=== PATIENT | male | born 1985 | race Caucasian/White ===

== ENCOUNTER 2023-08-23 07:53 | Emergency (ER) | payer SELFPAY ==
[~2023-08-23] VITALS: Ht 182 cm; Wt 90.7 kg
[2023-08-23 07:59] VITALS: BP 108/75
[2023-08-23] MEDS ORDERED: LACTATED RINGERS 1,000 ML 1,000 ML IV ONE ×3 (08:30→11:30)
[2023-08-23 08:39] LABS: BASOPHILS % (AUTO) 1 % (0-10); EOSINOPHILS # (AUTO) 0.1 10^3/uL (0.0-0.3); EOSINOPHILS % (AUTO) 1 % (0-10); HEMATOCRIT 40 % (40-54); HEMOGLOBIN 13.9 g/dL (13.3-17.7); LYMPHOCYTES # (AUTO) 1.2 10^3/uL (1.0-4.0); LYMPHOCYTES % (AUTO) 17 % (12-44); MEAN CORPUSCULAR HEMOGLOBIN 30 pg (25-34); MEAN CORPUSCULAR HGB CONC 35 g/dL (32-36); MEAN CORPUSCULAR VOLUME 86 fL (80-99); MEAN PLATELET VOLUME 10.7 fL (9.0-12.2); MONOCYTES # (AUTO) 0.5 10^3/uL (0.0-1.0); MONOCYTES % (AUTO) 7 % (0-12); NEUTROPHILS # (AUTO) 5.4 10^3/uL (1.8-7.8); NEUTROPHILS % (AUTO) 75 % (42-75); PLATELET COUNT 248 10^3/uL (130-400); WHITE BLOOD COUNT 7.3 10^3/uL (4.3-11.0)
[2023-08-23 08:44] LABS: CHLORIDE 106 MMOL/L (98-107); POTASSIUM 3.1 MMOL/L (3.6-5.0)
[2023-08-23 08:45] LABS: SODIUM 139 MMOL/L (135-145)
[2023-08-23 08:46] LABS: CALCIUM 8.6 MG/DL (8.5-10.1)
[2023-08-23 08:48] LABS: GLUCOSE 128 MG/DL (70-105); TOTAL PROTEIN 6.4 GM/DL (6.4-8.2)
[2023-08-23 08:49] LABS: BILIRUBIN,TOTAL 0.6 MG/DL (0.1-1.0); CARBON DIOXIDE 24 MMOL/L (21-32)
[2023-08-23 08:51] LABS: ALKALINE PHOSPHATASE 29 U/L (40-136); CREATININE SERUM 0.91 MG/DL (0.60-1.30); GFR ESTIMATED 112
[2023-08-23 08:53] LABS: ACETAMINOPHEN < 10 UG/ML (10-30); BUN/CREATININE RATIO 22
[2023-08-23 08:54] LABS: ALANINE AMINOTRANSFERASE 51 U/L (0-55); SALICYLATE < 5.0 MG/DL (5.0-20.0)
[2023-08-23 08:55] LABS: CREATINE KINASE 984 U/L (30-200)
--- NOTE | 2023-08-23 09:31 | ED Psychosocial ---
General Chief Complaint: Psych/Social Disorder Stated Complaint: SUICIDAL IDEATIONS Nursing Triage Note: PT PRESENTS TO ED VIA EMS WITH COMPLAINTS OF TAKING A BUNCH OF BENZOS, OPIODS, AND ETOH LAST NIGHT AROUND 0230 THIS AM AFTER HIS FIANCE BROKE UP WITH HIM YESTERDAY. PT ALSO REPORTS HE WAS RELEASED FROM [facility] AT 2030 YESTERDAY AND HAD TO SLEEP IN HIS CAR LAST NIGHT. PT REPORTS STILL FEELING SUICIDAL UPON HIS ARRIVAL TO ED. Source: patient Exam Limitations: other (Emotionally distraught, tearful) History of Present Illness Date Seen by Provider: Aug 23, 2023 Time Seen by Provider: 09:27 Initial Comments Fabricio is a 38-year-old man who arrives to the emergency room via EMS very tearful and emotionally distraught. He reports taking an unknown quantity of benzodiazepines, opioids, and alcohol last night. He does indicate to me that this overdose was with the intent of suicide. He reports being clean from substance abuse for 2 years prior to a "calhoun" over the past 4 days. He also admits to IV methamphetamine use and has inflamed skin and vessels on the upper extremities at injection sites. He is from the [facility] and travels with a [employer] company for work. About 4 days ago he left with a woman on a "4- day calhoun". He reports the woman he was with left him and took some of his possessions. His fiance then broke up with him and took more of his possessions. He now is essentially homeless and feels he is without purpose. Jer rios is tired of the cycle of substance abuse. He also reports briefly being incarcerated and released last night. He has a contusion under the right eye with abrasion. He does not know how that occurred. 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 He had me contact his employer to inform them he could not come to work today. Allergies and Home Medications Allergies Coded Allergies: No Known Drug Allergies (Unverified , 08/23/23) Patient Home Medication List Home Medication List Reviewed: Yes Review of Systems Constitutional: no symptoms reported EENTM: see HPI Respiratory: no symptoms reported Cardiovascular: no symptoms reported Gastrointestinal: no symptoms reported Genitourinary: no symptoms reported Musculoskeletal: see HPI Skin: see HPI Psychiatric/Neurological: See HPI Past Ceueyzm-Obyzuo-Miazcl Hx Patient Social History Tobacco Use?: No Use of E-Cig and/or Vaping dev: Yes E-Cig or Vaping type used: Nicotine Substance use?: Yes Substance type: Methamphetamine (IV), Opiates/Opioids, Misuse of prescript meds (Steroids, benzodiazepines, testosterone), Marijuana Alcohol Use?: Yes Alcohol type: Hard Liquor Alcohol Frequency: Daily Past Medical History Surgery/Hospitalization HX: CELLULITIS Surgeries: No Respiratory: No Cardiac: No Neurological: No Genitourinary: No Gastrointestinal: No Musculoskeletal: No Endocrine: No HEENT: No Cancer: No Psychosocial: Yes (Polysubstance abuse, effectively homeless, history of felony incarceration) Anxiety, Depression Physical Exam Vital Signs - First Documented 08/23/23 07:59 Temp 36.1 Pulse 87 Resp 16 B/P (MAP) 108/75 (86) Capillary Refill : Height, Weight, BMI Height: '" Weight: lbs. oz. kg; 27.00 BMI Method: General Appearance: WD/WN, moderate distress HEENT: PERRL/EOMI, other (Contusion and abrasion under the right eye. Mucous membranes somewhat dry) Neck: non-tender, normal inspection Respiratory: lungs clear, normal breath sounds, no respiratory distress Cardiovascular: regular rate, rhythm, no edema, no murmur Gastrointestinal: normal bowel sounds, non tender, soft Extremities: no pedal edema, other (Patchy erythema of the upper extremities. 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, no motor/sensory deficits, alert, oriented x 3 Appearance/Memory: disheveled Behavior/Eye Contact: cooperative, other (Highly emotional, tearful) Thoughts/Hallucinations: other (Admits to suicidal ideation and suicide attempt) Skin: normal color, warm/dry Progress/Results/Core Measures Results/Orders Lab Results Laboratory Tests Test 08/23/23 08:25 08/23/23 11:22 Range/Units White Blood Count 7.3 4.3-11.0 10^3/uL Red Blood Count 4.57 4.30-5.52 10^6/uL Hemoglobin 13.9 13.3-17.7 g/dL Hematocrit 40 40-54 % Mean Corpuscular Volume 86 80-99 fL Mean Corpuscular Hemoglobin 30 25-34 pg Mean Corpuscular Hemoglobin Concent 35 32-36 g/dL Red Cell Distribution Width 12.0 10.0-14.5 % Platelet Count 248 130-400 10^3/uL Mean Platelet Volume 10.7 9.0-12.2 fL Immature Granulocyte % (Auto) 0 % Neutrophils (%) (Auto) 75 42-75 % Lymphocytes (%) (Auto) 17 12-44 % Monocytes (%) (Auto) 7 0-12 % Eosinophils (%) (Auto) 1 0-10 % Basophils (%) (Auto) 1 0-10 % Neutrophils # (Auto) 5.4 1.8-7.8 10^3/uL Lymphocytes # (Auto) 1.2 1.0-4.0 10^3/uL Monocytes # (Auto) 0.5 0.0-1.0 10^3/uL Eosinophils # (Auto) 0.1 0.0-0.3 10^3/uL Basophils # (Auto) 0.0 0.0-0.1 10^3/uL Immature Granulocyte # (Auto) 0.0 0.0-0.1 10^3/uL Sodium Level 139 135-145 MMOL/L Potassium Level 3.1 L 3.6-5.0 MMOL/L Chloride Level 106 98-107 MMOL/L Carbon Dioxide Level 24 21-32 MMOL/L Anion Gap 9 5-14 MMOL/L Blood Urea Nitrogen 20 H 7-18 MG/DL Creatinine 0.91 0.60-1.30 MG/DL Estimat Glomerular Filtration Rate 112 BUN/Creatinine Ratio 22 Glucose Level 128 H 70-105 MG/DL Calcium Level 8.6 8.5-10.1 MG/DL Corrected Calcium 8.6 8.5-10.1 MG/DL Total Bilirubin 0.6 0.1-1.0 MG/DL Aspartate Amino Transf (AST/SGOT) 45 H 5-34 U/L Alanine Aminotransferase (ALT/SGPT) 51 0-55 U/L Alkaline Phosphatase 29 L 40-136 U/L Total Creatine Kinase 984 H 30-200 U/L C-Reactive Protein High Sensitivity 0.22 0.00-0.50 MG/DL Total Protein 6.4 6.4-8.2 GM/DL Albumin 4.0 3.2-4.5 GM/DL Salicylates Level < 5.0 L 5.0-20.0 MG/DL Acetaminophen Level < 10 L 10-30 UG/ML Serum Alcohol 32 H <10 MG/DL Urine Color YELLOW Urine Clarity CLEAR Urine pH 6.0 5-9 Urine Specific [place] >=1.030 1.016-1.022 Urine Protein TRACE H NEGATIVE Urine Glucose (UA) NEGATIVE NEGATIVE Urine Ketones NEGATIVE NEGATIVE Urine Nitrite NEGATIVE NEGATIVE Urine Bilirubin NEGATIVE NEGATIVE Urine Urobilinogen 4.0 < = 1.0 MG/DL Urine Leukocyte Esterase NEGATIVE NEGATIVE Urine RBC (Auto) NEGATIVE NEGATIVE Urine RBC NONE /HPF Urine WBC NONE /HPF Urine Squamous Epithelial Cells NONE /HPF Urine Crystals NONE /LPF Urine Bacteria NEGATIVE /HPF Urine Casts NONE /LPF Urine Mucus NEGATIVE /LPF Urine Culture Indicated NO Urine Opiates Screen NEGATIVE NEGATIVE Urine Oxycodone Screen NEGATIVE NEGATIVE Urine Methadone Screen NEGATIVE NEGATIVE Urine Barbiturates Screen NEGATIVE NEGATIVE Ur Tricyclic Antidepressants Screen NEGATIVE NEGATIVE Urine Phencyclidine Screen NEGATIVE NEGATIVE Urine Amphetamines Screen POSITIVE H NEGATIVE Urine Methamphetamines Screen POSITIVE H NEGATIVE Urine Benzodiazepines Screen NEGATIVE NEGATIVE Urine Cocaine Screen NEGATIVE NEGATIVE Urine Cannabinoids Screen POSITIVE H NEGATIVE My Orders Orders - ROBBI MONTEZ MD Ua Culture If Indicated (08/23/23 07:59) Cbc And Automated Diff (08/23/23 07:59) Comprehensive Metabolic Panel (08/23/23 07:59) Alcohol (08/23/23 07:59) Drug Screen Stat (Urine) (08/23/23 07:59) Acetaminophen (08/23/23 07:59) Salicylate (08/23/23 07:59) Ed Iv/Invasive Line Start (08/23/23 07:59) Monitor-Rhythm Ecg Trace Only (08/23/23 07:59) Bh Status Checks/Observation O Q15M (08/23/23 07:59) Ed Iv/Invasive Line Start (08/23/23 08:22) Lactated Ringers 1,000 Ml (Lactated Ring (08/23/23 08:30) Creatine Kinase (08/23/23 08:22) Hs C Reactive Protein (08/23/23 08:22) Ct Head/Cervical Spine Wo (08/23/23 08:22) Us Venous Upper Ext Lt (08/23/23 08:22) Lactated Ringers 1,000 Ml (Lactated Ring (08/23/23 09:30) Potassium Chloride (Tablet) (Potassium C (08/23/23 11:15) Ceftriaxone Iv/Im (Ceftriaxone Iv/Im) (08/23/23 11:23) Lactated Ringers 1,000 Ml (Lactated Ring (08/23/23 11:30) General/Regular (08/23/23 Lunch) Bh Status Checks/Observation O Q15M (08/23/23 20:05) Medications Given in ED Current Medications Medications Dose Ordered Sig/Francisca Route Start Time Stop Time Status Last Admin Dose Admin Lactated Ringer's 1,000 ml @ 0 mls/hr Q0M ONCE IV 08/23/23 09:30 08/23/23 09:31 DC 08/23/23 09:39 0 MLS/HR Lactated Ringer's 1,000 ml @ 0 mls/hr Q0M ONCE IV 08/23/23 11:30 08/23/23 11:31 DC 08/23/23 11:33 0 MLS/HR Potassium Chloride 20 meq ONCE ONCE PO 08/23/23 11:15 08/23/23 11:16 DC 08/23/23 11:33 20 MEQ Vital Signs/I&O Blood Pressure Mean: 86 Progress Progress Note : Progress Note Patient was interviewed and examined. He admitted to suicide attempt. He could not verbally contract with me that he was safe for discharge and would not harm himself. Significant workup was necessary for medical clearance. Due to evidence of head injury and excessive substance abuse, CT imaging of the head and cervical spine was obtained. Radiologist reports were reviewed. No acute injuries were identified. Sinusitis and periodontal disease were noted. There was concern for possible DVT of the left upper extremity. Ultrasound revealed no DVT. The ropey tender vein with erythema and swelling likely represents phlebitis from IV drug injection. Labs were obtained and interpreted by me. CBC was normal. Chemistry was notable for hypokalemia with potassium of 3.1. Glucose was mildly elevated at 128. Elevated CK of 984 represented mild rhabdomyolysis. Toxicology screen was positive for amphetamines, methamphetamine, cannabinoids, and alcohol level of 32. Urinalysis was notable for high specific gravity. Patient did exhibit reasonable urinary output with measured urine output of 320 mL at 11:20. Patient received a total of 3 L of LR. Potassium was replaced orally. Rocephin was given for various reasons including sinusitis, periodontal disease, and possible cellulitis at injection sites. Patient was ultimately medically cleared. [facility] was contacted for screening. Patient was somewhat resistant to engaging with the screener. He indicated no suicidal ideation to the screener. This was contrary to the suicidal ideation that he expressed to me multiple times. The screener did not believe the patient would screen him for involuntary admission and did not believe he would consent to voluntary admission. Ultimately, the screener left it to this provider to try finding placement. Patient was very hesitant to receive inpatient treatment because of concerns that he may lose his job if he takes time away. At his request, I contacted his employer again. I spoke with Mikey who assured me the company would support Albert taking a reasonable amount of time off work to seek health care. This message was relayed back to Albert. Messages were left at [facility] in [place] and the [facility] in [place]. These calls were not returned during patient's ER visit. Patient had requested his usual doses of Suboxone which he brought with him. The first dose was administered according to prescription instructions by his nurse. When he was to receive the second dose, 3 tablets came out of the bottle instead of 1. Although patient very well knew his dosing, he quickly snatched all 3 pills and swallowed them. When he took all 3 of them, the nurse insisted that he spit them out, but he refused. Patient was called out on this behavior. He was then asked to remove clothing and possessions to be placed in a gown and in the ligature resistant exam room. Patient became angry at that time and walked out of the emergency room. Police were notified for a welfare check. 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 Diagnostic Imaging Diagonstic Imaging: CT Plain Films/CT/US/NM/MRI: c-spine, head Comments NAME: ALBERT [facility] REC#: [id number] PT STATUS: REG ER : 1985 PHYSICIAN: ROBBI MONTEZ MD ADMIT DATE: 08/23/23/ER Signed Date of Exam:08/23/23 CT HEAD/CERVICAL SPINE WO PROCEDURE: CT head and CT cervical spine without contrast. TECHNIQUE: Multiple contiguous axial images were obtained through the brain and cervical spine without the use of intravenous contrast. Sagittal and coronal reformations through the cervical spine were then performed. Auto Exposure Controls were utilized during the CT exam to meet ALARA standards for radiation dose reduction. INDICATION: Headache and neck pain after trauma. COMPARISON: None. FINDINGS: No acute intracranial hemorrhage. The aguilar-white matter differentiation is preserved. No midline shift or mass effect. No intra-cranial mass or fluid collection. The sella is normal. The ventricles are normal. The subarachnoid cisterns are maintained. The paranasal sinuses demonstrate mucosal thickening within the left maxillary sinus. The mastoids and middle ear cavities are clear. No skull fracture. In the cervical alignment is maintained. Mild multilevel facet arthritis. Mild multilevel disc height loss. No acute fracture or dislocation of the cervical spine. No lytic or sclerotic bone lesions. No high-grade spinal canal or neural foraminal stenosis. Dental caries and periapical lucencies in the right upper maxillary with associated mucosal thickening concerning for odontogenic sinusitis. IMPRESSION: No acute intracranial hemorrhage. No large vascular territory raman-white loss. No intracranial mass, midline shift, or hydrocephalus. No acute fracture or dislocation of the cervical spine. Dental caries and periapical lucencies in the right upper maxillary with associated mucosal thickening concerning for odontogenic sinusitis. Dictated by: Dictated on workstation # [id number] Dict: 08/23/23 0956 Trans: 08/23/23 1014 [facility] [id number] Interpreted by: PJ CUELLO DO Electronically signed by: PJ CUELLO DO 08/23/23 1014 Diagonstic Imaging: Ultrasound Plain Films/CT/US/NM/MRI: other (Left arm) Comments NAME: A[facility]RT [facility] REC#: [id number] PT STATUS: REG ER : 1985 PHYSICIAN: ROBBI MONTEZ MD ADMIT DATE: 08/23/23/ER Draft Date of Exam:08/23/23 US VENOUS UPPER EXT LT PROCEDURE: US venous upper extremity left. TECHNIQUE: Multiple realtime grayscale images were obtained of left upper extremity in various projections. Additional spectral analysis and color Doppler duplex images were also obtained. INDICATION: Phlebitis, deep venous thrombosis, swelling. COMPARISON: None available. FINDINGS: Normal flow, compression, and augmentation within the visualized deep venous structures of the left upper extremity. Additionally, normal flow and augmentation within the left subclavian vein and left axillary vein. IMPRESSION: No evidence of thrombosis Dictated on workstation # [id number] Dict: 08/23/2338 Trans: 08/23/23 0941 [facility] [id number] Interpreted by: ISHAN SÁNCHEZ MD Departure Impression Primary Impression: Suicide attempt by drug overdose Additional Impressions: Facial contusion Qualified Codes: S00.83XA - Contusion of other part of head, initial encounter Polysubstance abuse Suicidal ideation Cellulitis Qualified Codes: L03.119 - Cellulitis of unspecified part of limb Rhabdomyolysis Qualified Codes: T79.6XXA - Traumatic ischemia of muscle, initial encounter Hypokalemia Phlebitis of left arm Sinusitis Qualified Codes: J32.0 - Chronic maxillary sinusitis Disposition: 07 AGAINST MEDICAL ADVICE Condition: Against Medical Advice Departure-Patient Inst. Referrals: NO,LOCAL PHYSICIAN (PCP/Family) Primary Care Physician ROBBI MONTEZ MD Aug 23, 2023 09:31
--- NOTE | 2023-08-23 09:42 | Diagnostic Imaging Report ---
PROCEDURE: US venous upper extremity left. TECHNIQUE: Multiple realtime grayscale images were obtained of left upper extremity in various projections. Additional spectral analysis and color Doppler duplex images were also obtained. INDICATION: Phlebitis, deep venous thrombosis, swelling. COMPARISON: None available. FINDINGS: Normal flow, compression, and augmentation within the visualized deep venous structures of the left upper extremity. Additionally, normal flow and augmentation within the left subclavian vein and left axillary vein. IMPRESSION: No evidence of deep venous thrombosis Dictated by: Dictated on workstation # [id number]
--- NOTE | 2023-08-23 10:16 | Diagnostic Imaging Report ---
PROCEDURE: CT head and CT cervical spine without contrast. TECHNIQUE: Multiple contiguous axial images were obtained through the brain and cervical spine without the use of intravenous contrast. Sagittal and coronal reformations through the cervical spine were then performed. Auto Exposure Controls were utilized during the CT exam to meet ALARA standards for radiation dose reduction. INDICATION: Headache and neck pain after trauma. COMPARISON: None. FINDINGS: No acute intracranial hemorrhage. The aguilar-white matter differentiation is preserved. No midline shift or mass effect. No intra-cranial mass or fluid collection. The sella is normal. The ventricles are normal. The subarachnoid cisterns are maintained. The paranasal sinuses demonstrate mucosal thickening within the left maxillary sinus. The mastoids and middle ear cavities are clear. No skull fracture. In the cervical alignment is maintained. Mild multilevel facet arthritis. Mild multilevel disc height loss. No acute fracture or dislocation of the cervical spine. No lytic or sclerotic bone lesions. No high-grade spinal canal or neural foraminal stenosis. Dental caries and periapical lucencies in the right upper maxillary with associated mucosal thickening concerning for odontogenic sinusitis. IMPRESSION: No acute intracranial hemorrhage. No large vascular territory raman-white loss. No intracranial mass, midline shift, or hydrocephalus. No acute fracture or dislocation of the cervical spine. Dental caries and periapical lucencies in the right upper maxillary with associated mucosal thickening concerning for odontogenic sinusitis. Dictated by: Dictated on workstation # [id number]
[2023-08-23] MEDS ORDERED: POTASSIUM CHLORIDE 10 MEQ TABLET PO ONE (11:15)
[2023-08-23] MEDS ORDERED: cefTRIAXone IV/IM 1,000 MG in NS (IVPB) 50 ML 50 ML IV STA (11:23)
[2023-08-23 11:39] LABS: AMPHETAMINE SCREEN, URINE POSITIVE (NEGATIVE); BARBITURATE SCREEN URINE NEGATIVE (NEGATIVE); CANNABINOID SCREEN, URINE POSITIVE (NEGATIVE); COCAINE SCREEN URINE NEGATIVE (NEGATIVE); METHADONE STAT NEGATIVE (NEGATIVE); OPIATE SCREEN URINE NEGATIVE (NEGATIVE); OXYCODONE STAT NEGATIVE (NEGATIVE); TRICYCLIC ANTIDEPRESSANTS SCRE NEGATIVE (NEGATIVE)
[2023-08-23 11:40] LABS: CLARITY,URINE CLEAR; COLOR,URINE YELLOW; GLUCOSE, URINE (UA) NEGATIVE (NEGATIVE); PROTEIN,URINE TRACE (NEGATIVE)
[2023-08-23 11:41] LABS: BACTERIA,URINE NEGATIVE /HPF; BILIRUBIN,URINE NEGATIVE (NEGATIVE); KETONES,URINE NEGATIVE (NEGATIVE); LEUKOCYTE ESTERASE ,URINE NEGATIVE (NEGATIVE); NITRITE,URINE NEGATIVE (NEGATIVE)
== END 2023-08-23 17:16 | disposition left against medical advice (07) ==
LOC: ER 07:55
DX: T42.4X2A Poisoning by benzodiazepines, intentional self-harm, initial encounter (principal); T40.2X2A Poisoning by other opioids, intentional self-harm, initial encounter; S05.11XA Contusion of eyeball and orbital tissues, right eye, initial encounter; T51.92XA Toxic effect of unspecified alcohol, intentional self-harm, initial encounter; F19.10 Other psychoactive substance abuse, uncomplicated; L03.114 Cellulitis of left upper limb; M62.82 Rhabdomyolysis; E87.6 Hypokalemia; I80.8 Phlebitis and thrombophlebitis of other sites; J32.9 Chronic sinusitis, unspecified; R73.9 Hyperglycemia, unspecified; F17.290 Nicotine dependence, other tobacco product, uncomplicated; X58.XXXA Exposure to other specified factors, initial encounter
CPT/HCPCS: 70450; 72125; 80053; 80306; 81000; 82550; 85025; 86141; 93041; 93971; 99284; G0480 ×3; 36415; 80320; 80329

== ENCOUNTER 2023-08-23 18:08 | Emergency (ER) | payer SELFPAY ==
[~2023-08-23] VITALS: Ht 182.8 cm; Wt 90.7 kg
--- NOTE | 2023-08-23 19:15 | ED Psychosocial ---
General Chief Complaint: Detox Stated Complaint: PSYCH EVAL Source: patient Exam Limitations: no limitations (CHEMO JAMIL MD) History of Present Illness Date Seen by Provider: Aug 23, 2023 Time Seen by Provider: 19:10 Initial Comments Patient is a 38-year-old male who presents to the emergency department, revisit from earlier today chief complaint of desiring detox and wanting mental health help. He was seen by the [facility] provider earlier, related to that he was suicidal, yesterday and this morning. He would not tell the [facility] provider that he was no longer suicidal, he kept avoiding the question. He has a history of benzo abuse, alcohol, methamphetamine, fentanyl. He tells me that yesterday and this morning he wanted to "drink himself to ". He has a history of 2 prior suicide attempts, one as a child 1 as an adult. He states he has been a "junky" for 23 years. He does have a good, solid stable job. He has health insurance. He has had quite a bit of social stressors regarding fiance in the last 24 hours. During his earlier visit today he was found to have a little bit of low potassium, was quite clinically dehydrated had fluid resuscitation, 3 L. Had some evidence of mild thrombophlebitis, received a gram of Rocephin. Had pretty significant work-up including left upper extremity ultrasound for the thrombophlebitis as well as CT head and cervical spine for contusions, ecchymosis of the face, unknown trauma. Patient is currently prescribed Suboxone. The [facility] provider was going to allow him to take one of his Suboxone tablets, when the nurse was shaking them out of the bottle 3 came out and the patient grabbed the 3 tablets and took them. He would not spit them out when he was instructed to do so by the nurse. He became increasingly agitated as did the nurse and the patient left AMA. On his return this evening he is very tearful and remorseful. He would like some mental health help as well as help for his drug abuse. He has had 5 months of sobriety before this last week of "calhoun". He is very tearful. Timing/Duration: week, getting worse Severity: severe Associated Symptoms: anxiety, impaired concentration, ingestion, suicidal ideation (CHEMO JAMIL MD) Allergies and Home Medications Allergies Coded Allergies: No Known Drug Allergies (Unverified , 08/23/23) Patient Home Medication List Home Medication List Reviewed: Yes (CHEMO JAMIL MD) Review of Systems Constitutional: see HPI EENTM: no symptoms reported Respiratory: no symptoms reported Cardiovascular: no symptoms reported Gastrointestinal: no symptoms reported Genitourinary: no symptoms reported Musculoskeletal: no symptoms reported Psychiatric/Neurological: Anxiety, Depressed, Emotional Problems ( CHEMO JAMIL MD) Past Wgididf-Iltqqv-Lmqcak Hx Past Medical History Surgery/Hospitalization HX: CELLULITIS (CHEMO JAMIL MD) Physical Exam Vital Signs - First Documented 08/23/23 19:17 Temp 36.8 Pulse 67 B/P (MAP) 131/94 (106) Pulse Ox 98 O2 Delivery Room Air (PETEY HEIN MD) Capillary Refill : (CHEMO JAMIL MD) Height, Weight, BMI Height: '" Weight: lbs. oz. kg; 27.00 BMI Method: General Appearance: moderate distress HEENT: PERRL/EOMI Respiratory: no respiratory distress, no accessory muscle use Extremities: normal range of motion Neurologic/Psychiatric: no motor/sensory deficits, alert, oriented x 3, depressed affect (depressed, anxious and tearful. no obvious auditory or visual halluconations. No HI.) Appearance/Memory: disheveled Behavior/Eye Contact: cooperative, good eye contact, normal speech Thoughts/Hallucinations: normal thought pattern, no apparent hallucination Skin: warm/dry (CHEMO JAMIL MD) BARS Assessment: 4-Calm/No Agitation (CHEMO JAMIL MD) Progress/Results/Core Measures Results/Orders Lab Results Laboratory Tests Test 08/23/23 19:10 08/23/23 19:56 08/23/23 20:44 Range/Units Urine Color YELLOW Urine Clarity CLEAR Urine pH 7.5 5-9 Urine Specific [place] 1.020 1.016-1.022 Urine Protein TRACE H NEGATIVE Urine Glucose (UA) NEGATIVE NEGATIVE Urine Ketones TRACE H NEGATIVE Urine Nitrite NEGATIVE NEGATIVE Urine Bilirubin NEGATIVE NEGATIVE Urine Urobilinogen >=8.0 < = 1.0 MG/DL Urine Leukocyte Esterase NEGATIVE NEGATIVE Urine RBC (Auto) NEGATIVE NEGATIVE Urine RBC NONE /HPF Urine WBC NONE /HPF Urine Squamous Epithelial Cells NONE /HPF Urine Crystals PRESENT H /LPF Urine Calcium Oxalate Crystals /LPF Urine Amorphous Sediment MOD CLARK PHOSPHATE H /LPF Urine Bacteria NEGATIVE /HPF Urine Casts NONE /LPF Urine Mucus NEGATIVE /LPF Urine Culture Indicated NO Urine Opiates Screen NEGATIVE NEGATIVE Urine Oxycodone Screen NEGATIVE NEGATIVE Urine Methadone Screen NEGATIVE NEGATIVE Urine Barbiturates Screen NEGATIVE NEGATIVE Ur Tricyclic Antidepressants Screen NEGATIVE NEGATIVE Urine Phencyclidine Screen NEGATIVE NEGATIVE Urine Amphetamines Screen POSITIVE H NEGATIVE Urine Methamphetamines Screen POSITIVE H NEGATIVE Urine Benzodiazepines Screen NEGATIVE NEGATIVE Urine Cocaine Screen NEGATIVE NEGATIVE Urine Cannabinoids Screen POSITIVE H NEGATIVE White Blood Count 5.4 4.3-11.0 10^3/uL Red Blood Count 4.18 L 4.30-5.52 10^6/uL Hemoglobin 12.7 L 13.3-17.7 g/dL Hematocrit 36 L 40-54 % Mean Corpuscular Volume 86 80-99 fL Mean Corpuscular Hemoglobin 30 25-34 pg Mean Corpuscular Hemoglobin Concent 36 32-36 g/dL Red Cell Distribution Width 12.1 10.0-14.5 % Platelet Count 222 130-400 10^3/uL Mean Platelet Volume 10.9 9.0-12.2 fL Immature Granulocyte % (Auto) 0 % Neutrophils (%) (Auto) 64 42-75 % Lymphocytes (%) (Auto) 25 12-44 % Monocytes (%) (Auto) 10 0-12 % Eosinophils (%) (Auto) 1 0-10 % Basophils (%) (Auto) 1 0-10 % Neutrophils # (Auto) 3.4 1.8-7.8 10^3/uL Lymphocytes # (Auto) 1.3 1.0-4.0 10^3/uL Monocytes # (Auto) 0.5 0.0-1.0 10^3/uL Eosinophils # (Auto) 0.0 0.0-0.3 10^3/uL Basophils # (Auto) 0.0 0.0-0.1 10^3/uL Immature Granulocyte # (Auto) 0.0 0.0-0.1 10^3/uL Sodium Level 139 135-145 MMOL/L Potassium Level 3.8 3.6-5.0 MMOL/L Chloride Level 108 H 98-107 MMOL/L Carbon Dioxide Level 26 21-32 MMOL/L Anion Gap 5 5-14 MMOL/L Blood Urea Nitrogen 14 7-18 MG/DL Creatinine 0.86 0.60-1.30 MG/DL Estimat Glomerular Filtration Rate 115 BUN/Creatinine Ratio 16 Glucose Level 117 H 70-105 MG/DL Calcium Level 8.5 8.5-10.1 MG/DL Corrected Calcium 8.7 8.5-10.1 MG/DL Total Bilirubin 0.6 0.1-1.0 MG/DL Aspartate Amino Transf (AST/SGOT) 39 H 5-34 U/L Alanine Aminotransferase (ALT/SGPT) 46 0-55 U/L Alkaline Phosphatase 26 L 40-136 U/L Total Protein 6.0 L 6.4-8.2 GM/DL Albumin 3.7 3.2-4.5 GM/DL Salicylates Level < 5.0 L 5.0-20.0 MG/DL Acetaminophen Level < 10 L 10-30 UG/ML Serum Alcohol < 10 <10 MG/DL SARS-CoV-2 RNA (RT-PCR) Not Detected Not Detecte (PETEY HEIN MD) My Orders Orders - PETEY HEIN MD [employer] Physician Consult (08/24/23 08:13) Doxycycline Hyclate Tablet (Doxycycline (08/24/23 10:48) (PETEY HEIN MD) Vital Signs/I&O (PETEY HEIN MD) Progress Progress Note #1: Time: 20:57 Progress Note medically cleared for behavioral eval Progress Note #2: Time: 03:40 Progress Note Patient seen and evaluated by me. Evaluation today includes history and physical exam as well as psych screening labs - CBC, comprehensive metabolic panel, urine toxicology, serum aspirin, acetaminophen and alcohol levels. COVID test was also ordered. Pertinent physical exam findings well-developed well- nourished anxious gentleman. Tearful, polite. Physical exam is otherwise generally unremarkable, no increased work of breathing or respiratory distress, heart is regular. No focal neurologic deficits. Anxiety consistent with possible methamphetamine intoxication. Differential diagnosis includes depression, anxiety, polysubstance abuse induced psychosis Patient's labs independently reviewed and interpreted by me. They are all within normal limits. He is positive for methamphetamine as well as marijuana. He has no concerning findings for acute suicidality. He actually states he is no longer suicidal just very depressed and looking for drug rehabilitation. Social determinants of health greatly impact his evaluation and treatment course. Patient has been resting quietly, no concerns. He was seen and screened by health source, behavioral health screener. Safety plan was agreed to. As the patient has no resources currently and has been nonconfrontational, not causing any disturbances will allow him to stay in the emergency department until case management social worker is available in the morning to assist with resources. (CHEMO JAMIL MD) Progress Note : Progress Note 0632: I have assumed care of the patient pending social work evaluation to see if we can help him on getting back to [place], [place]. Patient is resting peacefully and in no distress. Monitor patient. 1344: Through some great work with the social work team and with the assistance of the senior accountant cpa services as well as his boss from his work, we were able to come up with a plan to get him back to [place]. His boss take care of him from there. Patient is in full agreement with this plan. He denies SI or HI now. We did talk further about the recent binge episode and break from being clean. Discussion continued around continued work through different programs including j[facility]-based programs for remaining claim. Patient was very appreciative of the conversation. Finance Officer and social work also talked with the patient. I will give a repeat dose of Vibramycin and we will give him a few packets of antibiotic ointment. He was given 1 dose of his Suboxone. Discharged to go to the bus station via transport service. Patient verbalized understanding of instructions and agreement with plan and was very appreciative of the care and help. (PETEY HEIN MD) Initial ECG Impression Date: Aug 23, 2023 Initial ECG Impression Time: 19:56 Initial ECG Rate: 57 Initial ECG Rhythm: Normal Sinus Initial ECG Intervals NV 134 QRS 103 QTC 383 Initial ECG Impression: Normal (CHEMO JAMIL MD) Departure Impression Primary Impression: Polysubstance abuse Additional Impressions: Depression Qualified Codes: F32.A - Depression, unspecified Anxiety Disposition: 01 HOME, SELF-CARE Condition: Stable Departure-Patient Inst. Decision time for Depature: 13:46 (PETEY HEIN MD) Referrals: NO,LOCAL PHYSICIAN (PCP/Family) Primary Care Physician Patient Instructions: OUTPT MENTAL HEALTH SERVICES, Polysubstance Use Disorder, Anxiety, Adult (DC), Depression in adults Add. Discharge Instructions: All discharge instructions reviewed with patient and/or family. Voiced understanding. Continue to move forward 1 day at a time as discussed and follow-up with your drug treatment program services. You will be transported to [place] to the bus station to go to [place] where you will meet your boss. Please keep this schedule as planned. Return for any concerns as needed or follow-up with your closest ER. CHEMO JAMIL MD Aug 23, 2023 19:15 PETEY HEIN MD Aug 24, 2023 06:33
[2023-08-23 20:10] LABS: ALBUMIN 3.7 GM/DL (3.2-4.5); BASOPHILS % (AUTO) 1 % (0-10); CHLORIDE 108 MMOL/L (98-107); EOSINOPHILS % (AUTO) 1 % (0-10); HEMATOCRIT 36 % (40-54); HEMOGLOBIN 12.7 g/dL (13.3-17.7); LYMPHOCYTES # (AUTO) 1.3 10^3/uL (1.0-4.0); LYMPHOCYTES % (AUTO) 25 % (12-44); MEAN CORPUSCULAR HEMOGLOBIN 30 pg (25-34); MEAN CORPUSCULAR HGB CONC 36 g/dL (32-36); MEAN CORPUSCULAR VOLUME 86 fL (80-99); MEAN PLATELET VOLUME 10.9 fL (9.0-12.2); MONOCYTES # (AUTO) 0.5 10^3/uL (0.0-1.0); MONOCYTES % (AUTO) 10 % (0-12); NEUTROPHILS # (AUTO) 3.4 10^3/uL (1.8-7.8); NEUTROPHILS % (AUTO) 64 % (42-75); PLATELET COUNT 222 10^3/uL (130-400); POTASSIUM 3.8 MMOL/L (3.6-5.0); SODIUM 139 MMOL/L (135-145); WHITE BLOOD COUNT 5.4 10^3/uL (4.3-11.0)
[2023-08-23 20:11] LABS: AMPHETAMINE SCREEN, URINE POSITIVE (NEGATIVE); BARBITURATE SCREEN URINE NEGATIVE (NEGATIVE); CANNABINOID SCREEN, URINE POSITIVE (NEGATIVE); COCAINE SCREEN URINE NEGATIVE (NEGATIVE); METHADONE STAT NEGATIVE (NEGATIVE); OPIATE SCREEN URINE NEGATIVE (NEGATIVE); OXYCODONE STAT NEGATIVE (NEGATIVE); TRICYCLIC ANTIDEPRESSANTS SCRE NEGATIVE (NEGATIVE)
[2023-08-23 20:12] LABS: CALCIUM 8.5 MG/DL (8.5-10.1)
[2023-08-23 20:13] LABS: GLUCOSE 117 MG/DL (70-105)
[2023-08-23 20:13] LABS: AMORPHOUS SEDIMENT,UR MOD AMOR PHOSPHATE /LPF; BACTERIA,URINE NEGATIVE /HPF; BILIRUBIN,URINE NEGATIVE (NEGATIVE); CLARITY,URINE CLEAR; COLOR,URINE YELLOW; GLUCOSE, URINE (UA) NEGATIVE (NEGATIVE); KETONES,URINE TRACE (NEGATIVE); LEUKOCYTE ESTERASE ,URINE NEGATIVE (NEGATIVE); NITRITE,URINE NEGATIVE (NEGATIVE); PH,URINE 7.5 (5-9); PROTEIN,URINE TRACE (NEGATIVE)
[2023-08-23 20:14] LABS: CARBON DIOXIDE 26 MMOL/L (21-32)
[2023-08-23 20:15] LABS: BILIRUBIN,TOTAL 0.6 MG/DL (0.1-1.0)
[2023-08-23 20:17] LABS: ALKALINE PHOSPHATASE 26 U/L (40-136); CREATININE SERUM 0.86 MG/DL (0.60-1.30); GFR ESTIMATED 115
[2023-08-23 20:18] LABS: BUN/CREATININE RATIO 16
[2023-08-23 20:19] LABS: ACETAMINOPHEN < 10 UG/ML (10-30)
[2023-08-23 20:20] LABS: ALANINE AMINOTRANSFERASE 46 U/L (0-55); SALICYLATE < 5.0 MG/DL (5.0-20.0)
[2023-08-24 14:48] VITALS: BP 118/83
== END 2023-08-24 15:02 | disposition home or self-care (01) ==
LOC: EDUNIT# 18:08 → ER 18:11
DX: F19.10 Other psychoactive substance abuse, uncomplicated (principal); F41.9 Anxiety disorder, unspecified; F32.A Depression, unspecified
CPT/HCPCS: 80053; 80306; 81000; 85025; 87636; 93005; 99284; G0480 ×3; 36415; 80320; 80329